=== PATIENT | male | born 1995 ===

== ENCOUNTER 2024-05-15 16:26 | Emergency (ER) | payer OTHER, BC, SELFPAY ==
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
[2024-05-15 16:39] VITALS: BP 122/85; PULSE 72; RESP 16; TEMP 36.8; O2SAT 100
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
== END 2024-05-15 17:44 | disposition home or self-care (01) ==
PROVIDERS: Emergency Provider Nurse Practitioner
DX: S29.012A Strain of muscle and tendon of back wall of thorax, initial encounter (principal); V49.40XA Driver injured in collision with unspecified motor vehicles in traffic accident, initial encounter; S46.912A Strain of unspecified muscle, fascia and tendon at shoulder and upper arm level, left arm, initial encounter; S20.212A Contusion of left front wall of thorax, initial encounter
CPT/HCPCS: 71046; 72072; 73030; 99204; G0463